=== PATIENT | male | born 1990 | race Two or more races ===

== ENCOUNTER 2021-08-07 20:25 | Inpatient (IN) | payer OTHER ==
[~2021-08-07] VITALS: Ht 177.8 cm; Wt 90.7 kg
--- NOTE | 2021-08-07 21:22 | NUR ---
DR. HOGAN AT BEDSIDE, MSE IN PROGRESS.
[2021-08-07] MEDS ORDERED: CLINDAMYCIN PHOSPHATE IV 900 MG in IV DEXTROSE 5% 100 ML IV ONE (21:30)
[2021-08-07] MEDS ORDERED: DEXAMETHASONE SOD PHOSPHATE 4 MG INJ IV ONE (21:30)
[2021-08-07] MEDS ORDERED: IV NS 1000 ML 1,000 ML IV ONE (21:30)
[2021-08-07] MEDS ORDERED: KETOROLAC TROMETHAMINE 30 MG INJ IVP ONE (21:30)
[2021-08-07] MEDS ORDERED: DEXAMETHASONE SOD PHOSPHATE 10 MG INJ ONE (21:47)
[2021-08-07] MEDS ORDERED: KETOROLAC TROMETHAMINE 30 MG INJ ONE (21:47)
[2021-08-07] MEDS ORDERED: CLINDAMYCIN 900MG/D5W 100ML IVPB **ER PYXIS ONLY IJ ONE (21:47)
[2021-08-07 21:50] LABS: HEMATOCRIT 42.3 % (36.7-47.1); MEAN CORPUSCULAR HEMOGLOBIN 27.5 uug (23.8-33.4); MEAN CORPUSCULAR VOLUME 81.1 fL (73.0-96.2); PLATELET COUNT (AUTO) 372 K/uL (152-348)
[2021-08-07 21:51] LABS: CREATININE 1.3 mg/dL (0.6-1.3); POTASSIUM 3.8 mmol/L (3.5-5.1)
[2021-08-07 21:52] LABS: *MONOTEST NEGATIVE (NEGATIVE)
[2021-08-07] MEDS ORDERED: IOHEXOL 300MG/ML 100 ML INFUS..BTL ONE (21:52)
[2021-08-07] MEDS ORDERED: SWABABLE VALVE TRANSFER SET EA MC ONE (21:53)
[2021-08-07] MEDS ORDERED: IV NORMAL SALINE 250 ML IV ONE (21:53)
--- NOTE | 2021-08-07 22:15 | NUR ---
PT BEING TAKEN DOWN FOR CT.
--- NOTE | 2021-08-07 22:35 | NUR ---
PT RETURNED FROM CT, STABLE CONDITION.
--- NOTE | 2021-08-08 00:45 | NUR ---
PT RESTING COMFORTABLY IN BED, BREATHING EVEN AND UNLABORED.
--- NOTE | 2021-08-08 01:46 | NUR ---
PT TOLERATED PO CHALLENGE.
--- NOTE | 2021-08-08 02:43 | NUR ---
CALLED [facility] FOR PANEL CALL, DR. BERMUDEZ PAGED.
[2021-08-08] MEDS ORDERED: MORPHINE SULFATE 2 MG/1 ML DISP.SYRIN IV PRN (03:00)
[2021-08-08] MEDS ORDERED: ACETAMINOPHEN 325 MG TABLET PO PRN (03:00)
[2021-08-08] MEDS ORDERED: ONDANSETRON 4 MG/2 ML VIAL IV PRN (03:00)
--- NOTE | 2021-08-08 03:27 | NUR ---
GAVE REPORT TO ADRIAN.
[2021-08-08] MEDS: IV NS 1000 ML 1,000 ML IV SCH ×3 (04:23→23:24)
[2021-08-08 04:30] VITALS: BP 127/84
--- NOTE | 2021-08-08 04:36 | NUR ---
Pt. admitted to tele , under care of Dr. Santana Belongs List completed
--- NOTE | 2021-08-08 04:45 | NUR ---
RECEIVED PATIENT VIA GURNEY FROM ER. PATIENT IS A/O X4. NO C/O PAIN UPON ARRIVAL TO THE FLOOR, PATIENT JUST STATED, "IT FEELS UNCOMFORTABLE, LIKE SOMETHING IS STUCK IN MY THROAT." BEDSIDE SWALLOW DONE AT BEDSIDE. PATIENT IS ABLE TO SWALLOW WITHOUT ANY COUGHING. VSS. PLACED ON TELE ORDERED, SR. H/L INTACT AND PATENT, NOTED TO LEFT AC #20 GAUGE, STARTED IVF ORDERED, INFUSING WELL. ORIENTED PATIENT TO ROOM AND CALL LIGHT. CALL LIGHT IN REACH. ALL NEEDS ATTENDED. WILL CONTINUE TO MONITOR AND ASSESS.
[2021-08-08] MEDS: CLINDAMYCIN PHOSPHATE IV 900 MG in IV DEXTROSE 5% 100 ML IV SCH ×3 (07:55→21:25)
[2021-08-08] MEDS ORDERED: CLINDAMYCIN PHOSPHATE IV 900 MG in IV DEXTROSE 5% 100 ML IV SCH (09:00)
[2021-08-08 12:09] VITALS: BP 105/70
[2021-08-08 16:00] VITALS: BP 116/68
--- NOTE | 2021-08-08 18:35 | NUR ---
No acute distress identified during the shift. Denies pain. All needs and due meds given as ordered. Kept call light within reach. Safety precaution maintained. Will endorse to the next shift for continuity of care.
[2021-08-08 20:00] VITALS: BP 112/59
--- NOTE | 2021-08-08 20:45 | NUR ---
Patient alert oriented, no sob no chest pain, tele monitor sinus rhythm, no complain of pain, tolerate current diet, cont to monitor.
[2021-08-09 00:15] VITALS: BP 117/61
[2021-08-09] MEDS: CLINDAMYCIN PHOSPHATE IV 900 MG in IV DEXTROSE 5% 100 ML IV SCH (06:00)
[2021-08-09 06:29] VITALS: BP 116/73
--- NOTE | 2021-08-09 06:37 | NUR ---
Patient alert oriented, no sob no chest pain, tele monitor sinus rhythm, no complain of pain, no complain of difficulty swallowing at this time, cont to monitor.
[2021-08-09 06:54] LABS: HEMATOCRIT 37.5 % (36.7-47.1); MEAN CORPUSCULAR HEMOGLOBIN 27.9 uug (23.8-33.4); MEAN CORPUSCULAR VOLUME 82.5 fL (73.0-96.2); PLATELET COUNT (AUTO) 361 K/uL (152-348)
[2021-08-09 07:20] LABS: BILIRUBIN,TOTAL 0.4 mg/dL (0.2-1.0); CREATININE 1.2 mg/dL (0.6-1.3); PHOSPHOROUS 3.3 mg/dL (2.5-4.9); POTASSIUM 3.6 mmol/L (3.5-5.1); TOTAL PROTEIN, SERUM 7.4 g/dL (6.4-8.2)
[2021-08-09] MEDS ORDERED: CLIN300C12 PO (07:49)
--- NOTE | 2021-08-09 10:25 | NUR ---
new discharge orders. discharge instructions reviewed with patient, explained importance of f/u with primary health care provider in 1 week, to continue with medication regimen and to return to nearest er if symptoms worsen. at this time patient denies any pain, any swallowing difficulties. iv site removed minimum bleeding noted. per patient he has car parked [employer] and will drive self home. v/s at this time wnl.
--- NOTE | 2021-08-09 11:30 | NUR ---
patient assisted to lobby upon discharge, no complaints at this time
== END 2021-08-09 11:30 | disposition home or self-care (01) | DRG 153 ==
LOC: ER 20:29 → TELE3 08-08 03:54 → MEDSURG3 08-09 10:20
PROVIDERS: ADMIT Family Medicine; ATTEND Family Medicine
DX: J03.90 Acute tonsillitis, unspecified (principal); J02.9 Acute pharyngitis, unspecified; K11.20 Sialoadenitis, unspecified; D72.829 Elevated white blood cell count, unspecified; Z20.822 Contact with and (suspected) exposure to COVID-19
CPT/HCPCS: 36415; 70491; 84100; 85025; 86308; 86403; 87070; A4663; G0378; J1100; J1885; J3490; J7040; Q9967